=== PATIENT | male | born 1935 | race Caucasian/White ===

== ENCOUNTER 2016-11-07 19:01 | Inpatient (IN) | payer MEDICARE, MEDICAID ==
[~2016-11-07] VITALS: Ht 165.1 cm; Wt 100.3 kg
--- NOTE | ~2016-11-07 | PR ---
[place], [place] PROGRESS NOTE NAME: [id number] UNIT #: [id number] ROOM: 317 DOCTOR: LEONCIO SERRANO MD BIRTHDATE: [birth year] DOS: 11/17/2016 INTERVAL NOTE CHIEF COMPLAINT: "Hey, hey." SUMMARY OF THE VISIT: The patient was interviewed as he reclined in a Dianne-Chair, sitting in the group therapy room. Prior to me interacting with him, I did observe him and he was repeatedly hitting himself, it is almost visit, he requires some type of touch to calm himself down. As I approached, he began yelling out, hey, hey, hey. He did stop as I engaged him. His responses to me were rather short and simple. He was pleasant, however, and offered no combativeness or agitation. MENTAL STATUS: He is alert and oriented to person, perhaps place, but not time. Mood does seem to be trending towards euthymia. Affect is more appropriate. There is no francisco or hypomania. There is no overt auditory or visual hallucinations. PLAN: His valproic acid level is fairly therapeutic at 52.3. I will go ahead and increase the Depakote sprinkles to 750 mg 3 times a day and plan to recheck a valproic acid level again. Nurses do report that he has had some black stools, so I will go ahead and order stool for occult blood x 3. I will also see if we can obtain a weighted blanket to see if this would give him some relief. We will engage in individual and durant milieu activity, returning to the least restrictive environment when psychiatrically stable. LEONCIO SERRANO MD CM:PNTRANS LEONCIO SERRANO MD 11/17/1649 interface
--- NOTE | ~2016-11-07 | PR ---
[place], [place] PROGRESS NOTE [id number] UNIT #: [id number] ROOM: 317 DOCTOR: LEONCIO SERRANO MD BIRTHDATE: [birth year] DOS: 11/13/2016 CHIEF COMPLAINT: "I am tired, but I can get up." SUMMARY OF THE VISIT: The patient was interviewed as he rested quietly in bed. He did awake and engage in superficial conversation. He denied any issues other than being tired. Nurses report he continues to exhibit extreme mood lability that exhibits itself by him being self-abusive by banging on his chest repeatedly. He has also been somewhat sexually inappropriate towards staff and very labile. MENTAL STATUS: He remains alert and oriented to self, possibly place, but not time. Mood remains labile. Affect is inappropriate. There are no auditory or visual hallucinations. No delusions, no paranoia. There is no francisco or hypomania. Short term memory is exceedingly poor. PLAN: I will go ahead and check a valproic acid level in the a.m. I will maximize his Exelon patch from 9.5 to 13.3 mg daily. Maintain his Vraylar at 6 mg a day. Continue to engage in individual and durant milieu activity with the plan to return to the least restrictive environment when psychiatrically stable. LEONCIO SERRANO MD CM:PNTRANS LEONCIO SERRANO MD 11/13/1632 interface
--- NOTE | ~2016-11-07 | DS ---
[place], [place] DISCHARGE SUMMARY NAME: LIZBET FREEMAN [facility] #: [id number] UNIT #: [id number] ROOM: 317 DOCTOR: PERLITA BARNETT BIRTHDATE: [birth year] DOS: 11/18/2016 CHIEF COMPLAINT: "Am I going around your way." HISTORY OF PRESENT ILLNESS: He is an 81-year-old who came from long-term care facility [facility] where he was yelling out, trying to leave the facility and hitting himself in the chest. Staff reported that he tried to injure himself with a knife. He said he would injure himself with a knife if he would be able to get one. He had also been physically aggressive with staff and kicking them at the [facility]. He has had a history of at 10 mcg. PAST MEDICAL HISTORY: Alzheimers' disease, anemia. He has a history of angina, also BPH, COPD, dysphagia, hypertension, GERD, unspecified heart failure, chronic low back pain, major depressive disorder. He also has a history of recurrent urinary tract infections. He has stage 4 chronic kidney disease, type 2 diabetes and osteoarthritis. SUMMARY OF HOSPITAL COURSE: He was admitted to the Behavioral Health Unit, labs were obtained to rule out any organic cause for his behaviors, they were essentially within normal limits. On the unit, he would occasionally become combative with hands on care. Now at discharge, he is much more easily redirected, has had just one episode of becoming agitated and aggressive with hands on care. His Exelon patch was titrated up to 13.3 during his stay on the unit in order to treat his dementia and behaviors. Vraylar was increased to 6 mg daily in order to combat psychosis. His Depakote has been titrated up to 750 mg 3 times a day. His valproic acid level today was 49.3, which is just below the therapeutic range and it seems to be working well for him. He also had visceral added for anxiety and agitation. He reports that when he passed, he hits himself in the chest when he is inpatient or he is anxious. It does not appear to be an attempt to harm himself and he has said as much, it is comforting thing for him. The suggestion has been meet, perhaps once he gets back to the facility, they can get a weighted blanket and that will give him that kind of security that he needs. MENTAL STATUS AT DISCHARGE: He is alert. He is oriented to himself, not necessarily to place and time and that it seems to be his baseline. There is no francisco or hypomania. He is having no EPS or TD. His mood and affect are definitely more euthymic than they were on admission. DISPOSITION: He will be discharged back to [facility] in a psychiatrically stable condition. His medication and scripts have been printed and will be sent with him. [place], [place] DISCHARGE SUMMARY NAME: LIZBET FREEMAN UNIT #: [id number] ROOM: [facility] DOCTOR: PERLITA BARNETT BIRTHDATE: [birth year] Perlita Barnett NP CM:JHOAN [id number] PERLITA BARNETT 11/18/16 1516 interface
--- NOTE | ~2016-11-07 | PR ---
[place], [place] PROGRESS NOTE NAME: [id number] UN[facility] #: [id number] ROOM: 317 DOCTOR: LEONCIO SERRANO MD BIRTHDATE: [birth year] DOS: 11/16/2016 CHIEF COMPLAINT: "Morning." SUMMARY OF THE VISIT: The patient was interviewed as he reclined in a Dianne chair, eating his breakfast. He engaged in a very brief superficial conversation, said hello to me and then respond to simple questions more yes/no type than anything else. Nurses continued to report he sundowns in the evening and becomes more agitated and hard to redirect. MENTAL STATUS: He is alert and oriented to person, may be place, not time. Mood still is labile. Affect is still inappropriate at times. There is no hypomania or francisco. There are no overt auditory or visual hallucinations, delusions or paranoia. Processing is slow. Short-term memory is poor. PLAN: I will recheck a valproic acid level in the morning. I would like to target a level between 60 and 80 to decrease mood lability and agitation. Given the fact that he has been on Dilantin for some time, I will check an RBC folate level in the a.m. as well to make certain that he does not have an underlying folic acid deficiency. We will engage in individual and durant milieu activity with the plan to return to the least restrictive environment when psychiatrically stable. LEONCIO SERRANO MD CM:PNTRANS 1 [id number] LEONCIO SERRANO MD 11/16/16 1340 interface
[2016-11-08] MEDS ORDERED: ASPIRIN ADULT L81 M2 PO (05:04)
[2016-11-08] MEDS ORDERED: LIPITOR20 MG PO (05:09)
[2016-11-08] MEDS ORDERED: CLOPIDOGREL75 MG PO (05:13)
[2016-11-08] MEDS ORDERED: COLACE100 MG PO (05:14)
[2016-11-08] MEDS ORDERED: COZAAR100 MG PO (05:15)
[2016-11-08] MEDS ORDERED: DEPAKOTE DR500 MG PO ×2 (05:19→05:22)
[2016-11-08] MEDS ORDERED: DILANTIN100 MG PO (05:26)
[2016-11-08] MEDS ORDERED: FEROSUL325 MG PO (05:29)
[2016-11-08] MEDS ORDERED: FINASTERIDE5 M1 PO (05:33)
[2016-11-08] MEDS ORDERED: FLOMAX0.4 MG PO (05:34)
[2016-11-08] MEDS ORDERED: IMDUR SA60 M1 PO (05:35)
[2016-11-08] MEDS ORDERED: LANTUS100 U/ML SC (05:37)
[2016-11-08] MEDS ORDERED: MULTI-VITAMIN W1 TA2 PO (05:39)
[2016-11-08] MEDS ORDERED: NAMZARIC 28 MG1 EACH PO (05:42)
[2016-11-08] MEDS ORDERED: NITROSTAT0.4 MG SL (05:49)
[2016-11-08] MEDS ORDERED: NOVOLIN R100 U/ML SC (05:54)
[2016-11-08] MEDS ORDERED: OXYBUTYNIN5 MG PO (05:58)
[2016-11-08] MEDS ORDERED: KLOR-CON M2020 ME1 PO (06:00)
[2016-11-08] MEDS ORDERED: PROTONIX40 MG PO (06:01)
[2016-11-08] MEDS ORDERED: REMERON SOLTAB15 MG PO (06:04)
[2016-11-08] MEDS ORDERED: RISPERDAL0.5 MG PO (06:06)
[2016-11-08] MEDS ORDERED: VISTARIL50 MG PO (06:07)
[2016-11-08] MEDS ORDERED: VITAMIN D350000 UNIT PO (06:09)
[2016-11-08 10:35] LABS: BASO % 0.3 % (0.0-1.0); EOS # 0.2 10*3/uL (0.0-0.4); EOS % 2.3 % (1.0-4.0); HEMATOCRIT 35.3 % (42.0-52.0); HEMOGLOBIN 11.7 g/dl (14.0-18.0); LYMPH # 2.1 10*3/uL (1.3-4.4); LYMPH % 27.2 % (27.0-41.0); MEAN CELL VOLUME 91.2 fl (80.0-94.0); MEAN CORPUSCULAR HGB 30.2 pg (27.0-31.0); MEAN CORPUSCULAR HGB CONC 33.1 g/dl (33.0-37.0); MEAN PLATELET VOLUME 9.2 fl (9.6-12.3); MONO # 0.7 10*3/uL (0.1-1.0); MONO % 8.9 % (3.0-9.0); NEUT # 4.7 10*3/uL (2.3-7.9); NEUT % 60.9 % (47.0-73.0); PLATELET COUNT AUTOMATED 162 10*3/uL (130-400); RED BLOOD COUNT 3.87 10*6/uL (4.50-5.90); RED CELL DISTRI WIDTH 13.2 % (0-14.5); WHITE BLOOD COUNT 7.7 10*3/uL (4.8-10.8)
[2016-11-08 10:52] VITALS: BP 146/74
[2016-11-08 11:04] LABS: ALBUMIN 3.2 gm/dl (3.1-4.5); ALKALINE PHOSPHATASE 104 U/L (45-117); BILIRUBIN, TOTAL 0.2 mg/dl (0.2-1.0); BUN 20 mg/dl (7-24); CARBON DIOXIDE 26 mmol/L (21-32); CHLORIDE 110 mmol/L (98-107); CHOLESTEROL 142 mg/dL (<200); EST GLOM FILT AFRICAN AMERICAN > 60 ml/min; GLUCOSE 106 mg/dL (65-99); HDL CHOLESTEROL 43 mg/dl (40-60); LDL CHOLESTEROL 53 mg/dL (9-159); POTASSIUM 4.1 mmol/L (3.5-5.1); SGOT/AST 17 IU/L (3-35); SGPT/ALT 36 U/L (12-78); SODIUM 144 mmol/L (136-145); TOTAL PROTEIN 6.6 gm/dL (6.4-8.2); TRIGLYCERIDES 228 mg/dl (<150); VLDL CHOLESTEROL 46 mg/dL (6-40)
[2016-11-08 11:05] VITALS: BP 146/74
[2016-11-08 11:10] LABS: HEMOGLOBIN A1c 5.7 % (4.8-5.6)
[2016-11-08 20:15] VITALS: BP 137/53
[2016-11-08 21:59] LABS: BILIRUBIN NEGATIVE (NEGATIVE); BLOOD NEGATIVE (NEGATIVE); CLARITY SL CLOUDY (CLEAR); COLOR YELLOW (YELLOW); GLUCOSE NEGATIVE (NEGATIVE); KETONE NEGATIVE (NEGATIVE); LEUKO ESTERASE NEGATIVE (NEGATIVE); NITRITE NEGATIVE (NEGATIVE); PH 5.5 (5.0-9.0); PROTEIN NEGATIVE (NEGATIVE); UROBILINOGEN 0.2 E.U./dl (0.2-1.0)
[2016-11-08 22:06] LABS: BACTERIA TRACE; RBC 0-2 rbc/hpf (0-2); URINE REFLEX COMMENT NO (NO); WBC 0-2 wbc/hpf (0-5)
[2016-11-09 03:08] LABS: RBC, FOLATE HEMATOCRIT 33.6 % (37.5-51.0)
[2016-11-09 08:07] VITALS: BP 124/76
[2016-11-09 12:10] LABS: VITAMIN D, 25-HYDROXY 45.4 ng/mL (30-100)
[2016-11-09 20:11] VITALS: BP 159/61
[2016-11-10 09:00] VITALS: BP 136/76
[2016-11-10 20:00] VITALS: BP 146/66
[2016-11-11 07:54] VITALS: BP 142/53
[2016-11-11 19:56] VITALS: BP 146/66
[2016-11-12 07:45] VITALS: BP 152/66
[2016-11-12 20:10] VITALS: BP 148/86
[2016-11-13 07:50] VITALS: BP 143/62
[2016-11-13 20:15] VITALS: BP 139/107; BP 142/88
[2016-11-14 08:00] VITALS: BP 122/62
[2016-11-14 20:00] VITALS: BP 131/98
[2016-11-15 08:00] VITALS: BP 154/52
[2016-11-15 20:15] VITALS: BP 124/68
[2016-11-16 20:00] VITALS: BP 150/70
[2016-11-17 07:58] VITALS: BP 163/74; BP 178/75
[2016-11-17 10:27] VITALS: BP 156/54
[2016-11-17 20:09] VITALS: BP 166/86
[2016-11-18 08:20] VITALS: BP 164/55
[2016-11-18] MEDS ORDERED: HYDROXYZINE PAM25 M1 PO (09:18)
[2016-11-18] MEDS ORDERED: VITAMIN D50000 I3 PO (09:18)
[2016-11-18] MEDS ORDERED: MEMANTINE HCL10 MG PO (09:18)
[2016-11-18] MEDS ORDERED: VRAYLAR6 MG PO (09:18)
[2016-11-18] MEDS ORDERED: ATARAX,VISTARIL50 MG PO (09:18)
[2016-11-18] MEDS ORDERED: DIVALPROEX SOD125 M1 PO (09:18)
[2016-11-18] MEDS ORDERED: EXELON13.3 MG/21 T (09:18)
[2016-11-18] MEDS ORDERED: HYDR12.5C PO (10:45)
[2016-11-19 05:11] LABS: RBC, FOLATE HEMATOCRIT 30.1 % (37.5-51.0)
== END 2016-11-18 17:40 | disposition home or self-care (01) | DRG 57 ==
LOC: 3N 19:01
PROVIDERS: Psychiatry & Neurology Psychiatry; Registered Nurse
DX: G30.9 Alzheimer's disease, unspecified (principal); N18.4 Chronic kidney disease, stage 4 (severe); E11.22 Type 2 diabetes mellitus with diabetic chronic kidney disease; E87.8 Other disorders of electrolyte and fluid balance, not elsewhere classified; E11.65 Type 2 diabetes mellitus with hyperglycemia; R13.11 Dysphagia, oral phase; I50.9 Heart failure, unspecified; I13.0 Hypertensive heart and chronic kidney disease with heart failure and stage 1 through stage 4 chronic kidney disease, or unspecified chronic kidney disease; F23 Brief psychotic disorder; G89.29 Other chronic pain; E66.01 Morbid (severe) obesity due to excess calories; D64.9 Anemia, unspecified; F02.80 Dementia in other diseases classified elsewhere, unspecified severity, without behavioral disturbance, psychotic disturbance, mood disturbance, and anxiety; E78.5 Hyperlipidemia, unspecified; M54.5 Low back pain; M54.30 Sciatica, unspecified side; M19.90 Unspecified osteoarthritis, unspecified site; D63.8 Anemia in other chronic diseases classified elsewhere; F41.9 Anxiety disorder, unspecified; N40.0 Benign prostatic hyperplasia without lower urinary tract symptoms; R26.2 Difficulty in walking, not elsewhere classified; K21.9 Gastro-esophageal reflux disease without esophagitis; F32.9 Major depressive disorder, single episode, unspecified; M48.00 Spinal stenosis, site unspecified; I25.118 Atherosclerotic heart disease of native coronary artery with other forms of angina pectoris; Z88.8 Allergy status to other drugs, medicaments and biological substances; Z91.041 Radiographic dye allergy status; Z86.73 Personal history of transient ischemic attack (TIA), and cerebral infarction without residual deficits; Z79.82 Long term (current) use of aspirin; Z79.899 Other long term (current) drug therapy; Z79.4 Long term (current) use of insulin; Z87.440 Personal history of urinary (tract) infections; Z91.81 History of falling; Z68.36 Body mass index [BMI] 36.0-36.9, adult